=== PATIENT | female | born 1965 | race Hispanic/Latino ===

== ENCOUNTER 2017-08-15 06:56 | Day surgery (SDC) | payer BC ==
[~2017-08-15] VITALS: Ht 157.5 cm; Wt 74.6 kg
[~2017-08-15 06:56] MED LIST: NAPR-1023 PO; SERT25TA5 PO; SODIUM CHLORIDE 0.9% 1000ML 1,000 ML IV ONE
[2017-08-15 07:02] VITALS: BP 134/73
[2017-08-15 09:14] VITALS: BP 97/46
== END 2017-08-15 09:50 | disposition home or self-care (01) ==
LOC: EDSEX 06:56 → DAH 06:56
PROVIDERS: ATTEND Internal Medicine Gastroenterology
DX: Z12.11 Encounter for screening for malignant neoplasm of colon (principal); Z68.33 Body mass index [BMI] 33.0-33.9, adult; Z79.899 Other long term (current) drug therapy; K56.2 Volvulus; E66.9 Obesity, unspecified
CPT/HCPCS: 36415; 45378; 84703; J7030